=== PATIENT | male | born 1950 | race Caucasian/White ===

== ENCOUNTER 2020-06-07 08:48 | Emergency (ER) | payer OTHER ==
[~2020-06-07] VITALS: Ht 170.2 cm; Wt 85.7 kg
[~2020-06-07 08:48] MED LIST: ALDACTONE25 MG; ASPIR 8181 MG PO; ATORVASTATIN CA40 MG; CARVEDILOL6.25 MG; COZAAR 50 MG TA50 M2; DIPHENHIST50 MG PO; FLONASE 0.05%50 MCG; LASIX 40 MG TAB40 M2; PREDNISONE 20 M20 M1 PO; PREDNISONE 20 M20 MG PO; VITAMIN D 5050000 I1; ZETIA10 MG
[2020-06-07] MEDS ORDERED: DOXYCYCLINE 10100 MG PO (09:05)
[2020-06-07 10:00] VITALS: BP 120/75
== END 2020-06-07 10:00 | disposition home or self-care (01) ==
LOC: ER 08:48
DX: L03.116 Cellulitis of left lower limb (principal); I11.0 Hypertensive heart disease with heart failure; I50.9 Heart failure, unspecified; E78.5 Hyperlipidemia, unspecified; I25.2 Old myocardial infarction; Z79.899 Other long term (current) drug therapy; Z79.82 Long term (current) use of aspirin; Z88.1 Allergy status to other antibiotic agents